=== PATIENT | female | born 1965 | race Caucasian/White ===

== ENCOUNTER 2016-04-21 12:00 | Emergency (ER) | payer BC ==
[~2016-04-21] VITALS: Ht 172.7 cm; Wt 81.6 kg
[~2016-04-21 12:00] MED LIST: ALPR0.25 PO; BUPR75TA3 PO; CIME200T5 PO; LANS15CA5 PO; LITH300C4 PO; PEPTOBISMOL
[2016-04-21 12:39] LABS: BASOPHILS # (AUTO) 0.2 /CMM (0.0-0.2); DIFF TOTAL % 100 %; EOSINOPHILS # (AUTO) 0.1 /CMM (0.0-0.7); EOSINOPHILS % (AUTO) 0.8 % (0.0-6.0); HEMATOCRIT 48 % (33-45); HEMOGLOBIN 15.9 g/dL (11.5-14.8); LYMPHOCYTES # (AUTO) 1.9 /CMM (0.8-4.8); LYMPHOCYTES % (AUTO) 18.9 % (20.0-44.0); MEAN CORPUSCULAR HEMOGLOBIN 27 PG (26.0-33.0); MEAN CORPUSCULAR HGB CONC 33 g/dl (31.0-36.0); MEAN CORPUSCULAR VOLUME 82 fL (82-100); MONOCYTES # (AUTO) 0.5 /CMM (0.1-1.30); NEUTROPHILS # (AUTO) 7.4 /CMM (1.8-8.9); NEUTROPHILS % (AUTO) 73.3 % (43.0-81.0); PLATELET COUNT (AUTO) 313 /CMM (150-450); RED BLOOD CELL COUNT(AUTO) 5.82 MIL/uL (4.0-5.2); WHITE BLOOD COUNT (AUTO) 10.1 K/uL (4.3-11.0)
[2016-04-21] MEDS ORDERED: IV SET PRIMARY 1 EA INFUS.SET MC ONE (12:41)
[2016-04-21] MEDS ORDERED: ONDANSETRON HCL/PF 4 MG/2 ML VIAL ONE (12:41)
[2016-04-21] MEDS ORDERED: IV NS 0.9% 1,000 ML ONE (12:41)
[2016-04-21] MEDS ORDERED: LORAZEPAM INJ 2 MG/ML VIAL ONE (12:42)
[2016-04-21 12:46] LABS: KETONES,URINE Negative (NEGATIVE); LEUKOCYTE ESTERASE ,URINE Negative (NEGATIVE); PH,URINE 6.5 (5.0-8.0)
[2016-04-21 12:48] LABS: ANION GAP 15 (5-14); CALCIUM, SERUM 9.2 mg/dL (8.5-10.1); CARBON DIOXIDE 22 mmol/L (21-32); CHLORIDE 106 mmol/L (98-107); CREATININE 0.5 mg/dL (0.6-1.3); GFR 132 mL/min (>60); GLUCOSE 125 mg/dL (74-106); POTASSIUM 4.5 mmol/L (3.5-5.1); SODIUM SERUM 139 mmol/L (136-145); UREA NITROGEN, BLOOD 9 mg/dL (7-18)
[2016-04-21 12:48] LABS: ADD UA MICROSCOPIC YES
[2016-04-21] MEDS: IV NS 0.9% 1,000 ML BAG IV ONE (12:48)
[2016-04-21] MEDS: ONDANSETRON HCL/PF 4 MG/2 ML VIAL IVP ONE (12:49)
[2016-04-21] MEDS: LORAZEPAM INJ 2 MG/ML VIAL IV ONE (12:50)
[2016-04-21 12:54] LABS: ALANINE AMINOTRANSFERASE 22 U/L (12-78); ALBUMIN 3.8 g/dL (3.4-5.0); ASPARTATE AMINOTRANSFERASE 18 U/L (15-37); BILIRUBIN,TOTAL 0.3 mg/dL (0.2-1.0); TOTAL PROTEIN, SERUM 7.3 g/dL (6.4-8.2)
[2016-04-21 12:55] LABS: ACETAMINOPHEN < 10 ug/ml (10-30); INDIRECT BILIRUBIN 0.3 mg/dL (0.0-1.1); SALICYLATE 1.5 mg/dL (2.8-20.0)
[2016-04-21 12:56] LABS: PREGNANCY TEST URINE QUAL NEGATIVE (NEGATIVE)
[2016-04-21 12:58] LABS: ADD URINE CULTURE YES; RBC,URINE 0-2 /HPF (0-2); WBC,URINE NONE SEEN /HPF (0-3)
[2016-04-21 13:24] LABS: CANNABINOID, URINE NEGATIVE (NEGATIVE); PHENCYCLIDINE SCREEN,URINE NEGATIVE (NEGATIVE)
[2016-04-21 13:57] VITALS: BP 135/72
== END 2016-04-21 13:58 | disposition home or self-care (01) ==
LOC: ER 12:01
DX: F13.239 Sedative, hypnotic or anxiolytic dependence with withdrawal, unspecified (principal); F15.10 Other stimulant abuse, uncomplicated; J45.909 Unspecified asthma, uncomplicated; Z88.5 Allergy status to narcotic agent
CPT/HCPCS: 36415; 80048-TC; 80076-TC; 80305; 81000-TC; 83690-TC; 84703-TC; 85025-TC; 87086-TC; A4606; G0480; G6039-TC; J2060; J2405; J7030; Z7610

== ENCOUNTER 2017-12-05 00:03 | Emergency (ER) | payer BC ==
[~2017-12-05] VITALS: Ht 157.5 cm; Wt 77.1 kg
[~2017-12-05 00:03] MED LIST changes: +LANS15CA13 PO; -LANS15CA5 PO
--- NOTE | 2017-12-05 00:03 | NUR ---
BB FRIEND C/O BILATERAL BREAST PAIN/INFECTION WITH RIGHT BREAST BEING WORSE POST BREAST REDUCTION SURGERY ON 11/16/17. PT IS ALERT AND ORIENTED X4 ABLE TO MAKE NEED KNOWN. VSS NO ACUTE DISTRESS NOTED AT THIS TIME. SKIN AROUND AREOLA INFECTED. BREATHING RATE WNL WITH ADEQUATE CHEST RISE/FALL. WILL CONTINUE TO MONITOR FOR ANY CHANGES DURING THE SHIFT.
--- NOTE | 2017-12-05 00:04 | NUR ---
ER MD WALKER AT BEDSIDE
--- NOTE | 2017-12-05 01:19 | NUR ---
ATTEMPTING TO CALL PLASTIC SURGEON MD AUDREY FRIEDMAN AT [phone] REGARDING PATIENT CARE. AWAITING CALL BACK.
[2017-12-05] MEDS ORDERED: MAGNESIUM HYDROXIDE 30 ML UDC ONE (01:23)
[2017-12-05] MEDS ORDERED: diphenhydrAMINE HCL 50 MG/ML VIAL ONE (01:23)
[2017-12-05] MEDS ORDERED: ONDANSETRON HCL/PF 4 MG/2 ML VIAL ONE (01:23)
[2017-12-05] MEDS ORDERED: VANCOMYCIN 1 GM VIAL ONE (01:23)
[2017-12-05] MEDS ORDERED: HYDROMORPHONE 1 MG/1 ML DISP.SYRIN ONE (01:24)
[2017-12-05] MEDS ORDERED: HYDROMORPHONE 1 MG/1 ML DISP.SYRIN IV ONE (01:30)
[2017-12-05] MEDS ORDERED: ONDANSETRON HCL/PF - ER 4 MG/2 ML VIAL IV ONE (01:30)
[2017-12-05] MEDS ORDERED: diphenhydrAMINE HCL 50 MG/ML VIAL IV ONE (01:30)
[2017-12-05] MEDS ORDERED: VANCOMYCIN 1 GM in IV D5W 250 ML IV ONE (01:30)
[2017-12-05] MEDS ORDERED: MAGNESIUM HYDROXIDE 30 ML UDC PO ONE (01:30)
[2017-12-05 01:36] LABS: BASOPHILS % (AUTO) 0.1 % (0.0-2.0); HEMATOCRIT 36 % (33-45); HEMOGLOBIN 11.7 g/dL (11.5-14.8); LYMPHOCYTES # (AUTO) 2.8 /CMM (0.8-4.8); LYMPHOCYTES % (AUTO) 22.3 % (20.0-44.0); MEAN CORPUSCULAR HGB CONC 32 g/dl (31.0-36.0); MEAN CORPUSCULAR VOLUME 85 fL (82-100); MONOCYTES # (AUTO) 1.2 /CMM (0.1-1.30); MONOCYTES % (AUTO) 9.6 % (2.0-12.0); NEUTROPHILS # (AUTO) 8.4 /CMM (1.8-8.9); PLATELET COUNT (AUTO) 729 /CMM (150-450); RDW COEFFICIENT OF VARIATION 14.2 (11.5-15.0); RED BLOOD CELL COUNT(AUTO) 4.27 MIL/uL (4.0-5.2); WHITE BLOOD COUNT (AUTO) 12.7 K/uL (4.3-11.0)
[2017-12-05 01:46] LABS: CALCIUM, SERUM 9.3 mg/dL (8.5-10.1); CREATININE 0.6 mg/dL (0.6-1.3); POTASSIUM 4.3 mmol/L (3.5-5.1)
[2017-12-05 01:52] LABS: ALBUMIN 2.5 g/dL (3.4-5.0); BILIRUBIN,DIRECT 0.1 mg/dL (0.0-0.2); BILIRUBIN,TOTAL 0.2 mg/dL (0.2-1.0); TOTAL PROTEIN, SERUM 7.3 g/dL (6.4-8.2)
[2017-12-05 01:57] LABS: INR 0.96 (0.87-1.13)
[2017-12-05 02:21] VITALS: BP 138/85
== END 2017-12-05 02:21 | disposition home or self-care (01) ==
LOC: ER 00:07
DX: N61.0 Mastitis without abscess (principal); J45.909 Unspecified asthma, uncomplicated; F41.0 Panic disorder [episodic paroxysmal anxiety]; F31.9 Bipolar disorder, unspecified; Z98.890 Other specified postprocedural states; Z88.6 Allergy status to analgesic agent; Z98.86 Personal history of breast implant removal; Z90.711 Acquired absence of uterus with remaining cervical stump; Z79.899 Other long term (current) drug therapy
CPT/HCPCS: 36415; 80048; 80076; 85025; 85730; 87040 ×2; 96365; 96375; 99284; A4606; J1170; J1200; J2405; J3370; Z7610

== ENCOUNTER 2018-02-26 21:50 | Emergency (ER) | payer BC ==
--- NOTE | 2018-02-26 21:57 | NUR ---
INFORMED BY ADMITTING "PT STATES SHE FEELS BETTER AND LEAVING"
== END 2018-02-26 22:29 | disposition left against medical advice (07) ==
LOC: ER 21:52
DX: Z53.21 Procedure and treatment not carried out due to patient leaving prior to being seen by health care provider (principal)